=== PATIENT | male | born 1980 | race Caucasian/White ===

== ENCOUNTER 2017-02-13 11:38 | Emergency (ER) | payer MEDICARE, OTHER ==
[~2017-02-13] VITALS: Ht 165.1 cm; Wt 97.1 kg
[~2017-02-13 11:38] MED LIST: AMLO2.5T PO; AMOX500C PO; CYCL10TA2 PO; GABA-586 PO; HYDR-2762 PO; HYDR-971 PO; LISI1TAB3 PO; LISI1TAB7 PO; METH-38 PO
[2017-02-13 12:20] VITALS: BP 163/110
[2017-02-13] MEDS ORDERED: CYCL10TA2 PO (12:52)
--- NOTE | 2017-02-13 12:52 | PHYS DOC ---
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 Patient states that he had no loss of bowel or bladder however he does state he has a little numbness and tingling into his right leg. Patient is able to ambulate with a good steady gait. Patient states he has taken ibuprofen at home for the pain and discomfort as he can take ibuprofen pills been unable to take the ibuprofen liquid. Patient denies any loss of bowel or bladder. Review of Systems Review of Systems Constitutional: Denies fever or chills [] Eyes: Denies change in visual acuity, redness, or eye pain [] HENT: Denies nasal congestion or sore throat [] Respiratory: Denies cough or shortness of breath [] Cardiovascular: No additional information not addressed in HPI [] GI: Denies abdominal pain, nausea, vomiting, bloody stools or diarrhea [] : Denies dysuria or hematuria [] Musculoskeletal: Complaining of mid back pain denies any joint pain Integument: Denies rash or skin lesions [] Neurologic: Denies headache, focal weakness or sensory changes [] Endocrine: Denies polyuria or polydipsia [] Allergies Allergies Allergies Coded Allergies Type Severity Reaction Last Updated Verified ibuprofen Allergy Severe tachycardia shortness of breath 05/22/15 Yes amlodipine Adverse Reaction Intermediate Nausea and Vomiting 05/22/15 Yes morphine Adverse Reaction Intermediate Nausea and Vomiting palpitations Yes Physical Exam Physical Exam Constitutional: Well developed, well nourished, no acute distress, non-toxic appearance. [] HENT: Normocephalic, atraumatic, bilateral external ears normal, oropharynx moist, no oral exudates, nose normal. [] Eyes: PERRLA, EOMI, conjunctiva normal, no discharge. [] Neck: Normal range of motion, no tenderness, supple, no stridor. [] Cardiovascular:Heart rate regular rhythm, no murmur [] Lungs & Thorax: Bilateral breath sounds clear to auscultation [] Skin: Warm, dry, no erythema, no rash. [] Back: Tenderness noted to the paraspinal area along the mid thoracic to upper lumbar area. Extremities: No tenderness, no cyanosis, no clubbing, ROM intact, no edema. Peripheral pulses 2+ cap refill brisk less than 2 seconds. Patient with increased discomfort noted when doing straight leg raise on the right. Neurologic: Alert and oriented X 3, normal motor function, normal sensory function, no focal deficits noted. [] Psychologic: Affect normal, judgement normal, mood normal. [] Current Patient Data Vital Signs Vital Signs Date Time Temp Pulse Resp B/P (MAP) Pulse Ox O2 Delivery O2 Flow Rate FiO2 02/13/17 12:20 98.6 81 18 95 Room Air 98.6 EKG EKG [] Radiology/Procedures Radiology/Procedures [] Course & Med Decision Making Course & Med Decision Making Pertinent Labs and Imaging studies reviewed. (See chart for details) Patient was instructed to continue with ibuprofen 800 mg every 8 hours with food stop taking few develop an upset stomach. Patient was also encouraged to use Flexeril as needed for muscle spasms. Explained to patient that this medication will cause drowsiness do not take any be alert and oriented. Patient was provided with signs and symptoms to return back to the emergency department. Patient was also encouraged to use ice packs on 20 minutes off 20 minutes several times a day. He was encouraged follow-up with his work comp physician in one week if he continues to have pain and discomfort. He was also instructed to avoid heavy lifting over 5 pounds from the floor to the waist of the waist above the shoulders. Patient was also encouraged to refrain from working or driving while taking the Flexeril as this medication causes drowsiness. Patient agrees with discharge instructions treatment regimens and follow-up recommendations. Dragon Disclaimer Dragon Disclaimer This electronic medical record was generated, in whole or in part, using a voice recognition dictation system. Departure Departure Impression: Primary Impression: Back strain Disposition: 01 HOME, SELF-CARE Condition: STABLE Referrals: NO PCP (PCP) Patient Instructions: Back Pain, Adult, [id number] Additional Instructions: Activity as tolerated Medication as prescribed Ibuprofen 800 mg every 8 hours with food stop taking if you develop upset stomach Flexeril for muscle spasm, this medication will cause drowsiness do not take if you need to be alert and oriented Followup with work com physician if you continue to have pain in 1 week Return to emergency department as needed for signs and symptoms that become worse. Scripts Cyclobenzaprine Hcl (CYCLOBENZAPRINE HCL) 10 Mg Tablet 10 MG PO TID, #30 TAB Prov: BRUNO ROCHA APRN 02/13/17 BRUNO ROCHA APRN Feb 13, 2017 12:52
== END 2017-02-13 12:53 | disposition home or self-care (01) ==
LOC: ER 11:38
DX: S39.012A Strain of muscle, fascia and tendon of lower back, initial encounter (principal); I10 Essential (primary) hypertension; H91.90 Unspecified hearing loss, unspecified ear; Z88.6 Allergy status to analgesic agent; Z88.5 Allergy status to narcotic agent; Z88.8 Allergy status to other drugs, medicaments and biological substances; Z90.49 Acquired absence of other specified parts of digestive tract; Z96.22 Myringotomy tube(s) status; X58.XXXA Exposure to other specified factors, initial encounter; Y93.89 Activity, other specified; Y92.89 Other specified places as the place of occurrence of the external cause; Y99.8 Other external cause status
CPT/HCPCS: 99283

== ENCOUNTER 2021-03-09 10:00 | Emergency (ER) | payer SELFPAY ==
[~2021-03-09] VITALS: Ht 188 cm; Wt 105.2 kg
[~2021-03-09 10:00] MED LIST changes: -AMLO2.5T PO; +AMLO2.5T5 PO; -GABA-586 PO; +GABA300C18 PO; -HYDR-2762 PO; +HYDR-2765 PO; +HYDR-3164 PO; -HYDR-971 PO; +LISI1TAB20 PO; +LISI1TAB23 PO; -LISI1TAB3 PO; -LISI1TAB7 PO
[2021-03-09 10:28] LABS: BASO # 0.2 x10^3/uL (0.0-0.2); BASO % 1 % (0-3); EOS # 0.6 x10^3/uL (0.0-0.7); EOS % 3 % (0-3); HEMOGLOBIN 17.3 g/dL (13.0-17.5); LYMPH # 2.7 x10^3/uL (1.0-4.8); LYMPH % 15 % (24-48); MEAN CORPUSCULAR HEMOGLOBIN 31 pg (25-35); MEAN CORPUSCULAR HGB CONC 35 g/dL (31-37); MEAN CORPUSCULAR VOLUME 87 fL (79-100); MONO # 1.5 x10^3/uL (0.0-1.1); MONO % 8 % (0-9); NEUT # 13.5 x10^3/uL (1.8-7.7); NEUT % 73 % (31-73); PLATELET COUNT 297 x10^3/uL (140-400); RED BLOOD COUNT 5.63 x10^6/uL (4.30-5.70); RED CELL DISTRIBUTION WIDTH 13.8 % (11.5-14.5); WHITE BLOOD COUNT 18.5 x10^3/uL (4.0-11.0)
[2021-03-09 10:55] LABS: CALCIUM 9.5 mg/dL (8.5-10.1); GFR 81.9
[2021-03-09 10:58] LABS: BARBITURATES NEG (NEG); BENZODIAZEPINES NEG (NEG); CANNABINOIDS NEG (NEG); COCAINE NEG (NEG); METHADONE NEG (NEG); OPIATES NEG (NEG); PHENCYCLIDINE NEG (NEG)
[2021-03-09 10:59] LABS: ALBUMIN 3.8 g/dL (3.4-5.0); MAGNESIUM 2.3 mg/dL (1.8-2.4); TOTAL BILIRUBIN 0.4 mg/dL (0.2-1.0); TOTAL PROTEIN 7.7 g/dL (6.4-8.2)
[2021-03-09 11:01] LABS: AMPHETAMINE/METHAMPHETAMINE NEG (NEG); BILIRUBIN,URINE NEGATIVE (NEG); CLARITY,URINE CLEAR; COLOR,URINE YELLOW; NITRITE,URINE NEGATIVE (NEG); PROTEIN,URINE 30 mg/dL (NEG-TRACE)
[2021-03-09 11:02] LABS: BACTERIA,URINE 0 /HPF (0-FEW); WBC,URINE 0 /HPF (0-4)
--- NOTE | 2021-03-09 11:08 | RAD ---
EXAM: Head CT without contrast. HISTORY: Altered mental status. TECHNIQUE: Computed tomographic images of the head were obtained without contrast. *One or more of the following individualized dose reduction techniques were utilized for this examina tion: 1. Automated exposure control. 2. Adjustment of the mA and/or kV according to patient size. 3. Use of iterative reconstruction technique. COMPARISON: None. FINDINGS: There is no acute or subacute extra-axial or intraparenchymal hemorrhage. There is no mass effect or midline shift. There is no hydrocephalus. There are nonspecific areas of decreased attenuation within the cerebral white matter. There is artif act related to a cochlear implant generator overlying the left mastoid. The orbits and visualized par anasal sinuses are clear. No suspicious calvarial lesion is seen. IMPRESSION: 1. No acute intracranial finding. Note is made that MRI is more sensitive for acute infarction. 2. Nonspecific areas of hypodensity within the cerebral white matter. Given the patient age, the dif ferential includes changes due to demyelinating disease. The possibility of changes due to chronic sm all vessel disease and advanced for patient age is also considered. These findings can be better asse ssed with MRI if clinically indicated. Electronically signed by: Alicia More MD (03/09/2021 11:06 AM) [id number]
[2021-03-09] MEDS ORDERED: POTASSIUM CHLORIDE 20MEQ 100 ML IV ONE (11:30)
[2021-03-09] MEDS ORDERED: ONDANSETRON PF 4 MG/2 ML VIAL. IVP ONE (11:45)
--- NOTE | 2021-03-09 11:58 | PHYS DOC ---
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 He woke up this morning at 745am, trying to get his attention because he could not move his left side. He felt like he being drunk but he has not drank any alcohol. He has have some visual disturbance and left eye twisting for 3 weeks. Patient was seen by his doctor on 03/06/21, and was told that being related to his migraine headache symptoms. Patient had no history of stroke, he is not on any blood thinner. History is very difficult to obtain because of patient condition. His daughter said took them more than an hour to get him dressed up, out of the house to come here. Upon arrival to ER, patient was acting very confused and somnolent. He was noted to move right side side but did not move his left side. He was observed tracking with his eyes. Review of Systems: Review of Systems: Constitutional: Denies fever or chills. [] Eyes: Positive for left eye problem HENT: Denies nasal congestion or sore throat. [] Respiratory: Denies cough or shortness of breath. [] Cardiovascular: Denies chest pain or edema. [] GI: Denies abdominal pain, nausea, vomiting, bloody stools or diarrhea. [] : Denies dysuria. [] Musculoskeletal: Denies back pain or joint pain. [] Integument: Denies rash. [] Neurologic: Positive for left-sided weakness, confusion, Endocrine: Denies polyuria or polydipsia. [] Lymphatic: Denies swollen glands. [] Psychiatric: Denies depression or anxiety. [] Heart Score: C/O Chest Pain: N/A Risk Factors: Risk Factors: DM, Current or recent (<one month) smoker, HTN, HLP, family history of CAD, obesity. Risk Scores: Score 0 - 3: 2.5% MACE over next 6 weeks - Discharge Home Score 4 - 6: 20.3% MACE over next 6 weeks - Admit for Clinical Observation Score 7 - 10: 72.7% MACE over next 6 weeks - Early Invasive Strategies Current Medications: Current Medications Medications (Trade) Dose Ordered Sig/Joshua Start Time Stop Time Status Last Admin Dose Admin Ondansetron HCl (Zofran) 4 mg 1X ONCE 03/09/21 11:45 03/09/21 11:46 DC 03/09/21 11:37 4 MG Potassium Chloride/Water 100 ml @ 50 mls/hr 1X ONCE 03/09/21 11:30 03/09/21 13:29 Allergies: Allergies: Allergies Coded Allergies Type Severity Reaction Last Updated Verified ibuprofen Allergy Severe tachycardia shortness of breath 05/22/15 Yes amlodipine Adverse Reaction Intermediate Nausea and Vomiting 05/22/15 Yes morphine Adverse Reaction Intermediate Nausea and Vomiting palpitations 05/22/15 Yes Physical Exam: PE: Constitutional: Well developed, well nourished, no acute distress, non-toxic appearance. [] HENT: Normocephalic, atraumatic, bilateral external ears normal, oropharynx moist, no oral exudates, nose normal. [] Eyes: PERRLA, not able to look up on left eye, conjunctiva normal, no discharge. [] Neck: Normal range of motion, no tenderness, supple, no stridor. [] Cardiovascular:Heart rate regular rhythm, no murmur [] Lungs & Thorax: Bilateral breath sounds clear to auscultation [] Abdomen: Bowel sounds normal, soft, no tenderness, no masses, no pulsatile masses. [] Skin: Warm, dry, no erythema, no rash. [] Back: No tenderness, no CVA tenderness. [] Extremities: No tenderness, no cyanosis, no clubbing, ROM intact, no edema. [] Neurologic: no movement on left upper and left lower extremities, altered sensation, slurred speech, drooling on left side, patient can move right leg but weak, left eye will not look up, right side facial droop. Psychologic: Affect normal, judgement normal, mood normal. [] Current Patient Data: Labs: Laboratory Tests Test 03/09/21 10:10 03/09/21 10:25 White Blood Count 18.5 x10^3/uL (4.0-11.0) H Red Blood Count 5.63 x10^6/uL (4.30-5.70) Hemoglobin 17.3 g/dL (13.0-17.5) Hematocrit 49.0 % (39.0-53.0) Mean Corpuscular Volume 87 fL (79-100) Mean Corpuscular Hemoglobin 31 pg (25-35) Mean Corpuscular Hemoglobin Concent 35 g/dL (31-37) Red Cell Distribution Width 13.8 % (11.5-14.5) Platelet Count 297 x10^3/uL (140-400) Neutrophils (%) (Auto) 73 % (31-73) Lymphocytes (%) (Auto) 15 % (24-48) L Monocytes (%) (Auto) 8 % (0-9) Eosinophils (%) (Auto) 3 % (0-3) Basophils (%) (Auto) 1 % (0-3) Neutrophils # (Auto) 13.5 x10^3/uL (1.8-7.7) H Lymphocytes # (Auto) 2.7 x10^3/uL (1.0-4.8) Monocytes # (Auto) 1.5 x10^3/uL (0.0-1.1) H Eosinophils # (Auto) 0.6 x10^3/uL (0.0-0.7) Basophils # (Auto) 0.2 x10^3/uL (0.0-0.2) Platelet Estimate Pending Sodium Level 137 mmol/L (136-145) Potassium Level 3.0 mmol/L (3.5-5.1) L Chloride Level 101 mmol/L (98-107) Carbon Dioxide Level 26 mmol/L (21-32) Anion Gap 10 (6-14) Blood Urea Nitrogen 13 mg/dL (8-26) Creatinine 1.0 mg/dL (0.7-1.3) Estimated GFR (Cockcroft-Gault) 81.9 BUN/Creatinine Ratio 13 (6-20) Glucose Level 136 mg/dL (70-99) H Glucose (Fingerstick) 150 mg/dL (70-99) H Calcium Level 9.5 mg/dL (8.5-10.1) Magnesium Level 2.3 mg/dL (1.8-2.4) Total Bilirubin 0.4 mg/dL (0.2-1.0) Aspartate Amino Transferase (AST) 17 U/L (15-37) Alanine Aminotransferase (ALT) 35 U/L (16-63) Alkaline Phosphatase 96 U/L (46-116) Troponin I Quantitative < 0.017 ng/mL (0.000-0.055) XN-Ips-W-Type Natriuretic Peptide 43 pg/mL (0-124) Total Protein 7.7 g/dL (6.4-8.2) Albumin 3.8 g/dL (3.4-5.0) Albumin/Globulin Ratio 1.0 (1.0-1.7) Ethyl Alcohol Level < 10 mg/dL (0-10) Urine Collection Type U cath Urine Color Yellow Urine Clarity Clear Urine pH 7.0 (<5.0-8.0) Urine Specific Stopover 1.025 (1.000-1.030) Urine Protein 30 mg/dL (NEG-TRACE) Urine Glucose (UA) Negative mg/dL (NEG) Urine Ketones (Stick) Negative mg/dL (NEG) Urine Blood Moderate (NEG) Urine Nitrite Negative (NEG) Urine Bilirubin Negative (NEG) Urine Urobilinogen Dipstick 1.0 mg/dL (0.2 mg/dL) Urine Leukocyte Esterase Negative (NEG) Urine RBC 6-10 /HPF (0-2) Urine WBC 0 /HPF (0-4) Urine Squamous Epithelial Cells Occ /LPF Urine Bacteria 0 /HPF (0-FEW) Urine Opiates Screen Neg (NEG) Urine Methadone Screen Neg (NEG) Urine Barbiturates Neg (NEG) Urine Phencyclidine Screen Neg (NEG) Urine Amphetamine/Methamphetamine Neg (NEG) Urine Benzodiazepines Screen Neg (NEG) Urine Cocaine Screen Neg (NEG) Urine Cannabinoids Screen Neg (NEG) Urine Ethyl Alcohol Neg (NEG) Laboratory Tests 03/09/21 10:10 Laboratory Tests 03/09/21 10:10 Vital Signs: Vital Signs Date Time Temp Pulse Resp B/P (MAP) Pulse Ox O2 Delivery O2 Flow Rate FiO2 03/09/21 10:23 98.0 95 16 145/89 (127) 100 Nasal Cannula 4.0 98.0 EKG: EKG: EKG was done at 1010, heart rate of 90 bpm, normal sinus rhythm, no ST segment elevation. Radiology/Procedures: Radiology/Procedures: [facility] [address] [place] [address] IMAGING REPORT Signed PATIENT: ILA MARVIN ACCOUNT: [id number] : 1980 LOCATION: ER AGE: 41 SEX: M EXAM STATUS: REG ER ORD. PHYSICIAN: LOS BAE DO REASON: left side weakness, not able to walk PROCEDURE: CT ANGIOGRAPHY HEAD AND NECK EXAM: CT angiography of the head and neck with intravenous contrast. HISTORY: Left-sided weakness. TECHNIQUE: Computed tomographic images of the head and neck were obtained following the administration of intravenous contrast according to angiography protocol. Multiplanar reformatting was performed and three dimensional maximum intensity projection images were obtained. *One or more of the following individualized dose reduction techniques were u tilized for this examination: 1. Automated exposure control. 2. Adjustment of the mA and/or kV according to patient size. 3. Use of iterative reconstruction technique. COMPARISON: Noncontrast head CT performed 03/09/2021. FINDINGS: There is a common origin of the right innominate and left common carotid arteries, a normal aortic arch branching variant. The visualized aortic arch is normal in caliber. No dissection is seen. There is a tortuous proximal left common carotid artery. There is no evidence of hemodynamically significant stenosis involving the proximal arch great vessels. There is mild intimal thickening involving the common carotid arteries and carotid bifurcations. There is no hemodynamically significant stenosis involving the carotid bifurcations. The distal internal carotid arteries are widely patent. The anterior indicating artery is faintly seen. There is a suspected left posterior cerebral artery or prominent posterior communicating artery with hypoplastic P1 segment. The right posterior communicating artery is likely developmental or absent. The right vertebral artery slightly dominant. The distal left vertebral artery is hypoplastic and is occluded distal to the origin of the posterior inferior cerebellar artery. 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 There is ground glass opacity within the lung apices likely due to atelectasis. There is no pneumothorax. There is no neck lymphadenopathy. The airways midline and widely patent. There is no mass effect or midline shift. There is no hydrocephalus. There is incidental asymmetry in the size of the right greater than left dural venous transverse sinuses, a normal variant. No convincing sinus thrombosis is seen. There are few incidental arachnoid granulations. IMPRESSION: 1. 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 2. Subtle areas of hypodensity within the cerebral white matter, better characterized on a noncontrast exam performed on the same date. This is nonspecific in a patient of this age. This can be better assessed with MRI. MRI is also more sensitive for acute infarction. Critical findings were discussed with Dr. Bae at 1245 hours on 03/09/2021. FOR INTERNAL CODING PURPOSES RESULT CODE: (C) PQRS Compliance Statement - Stenosis calculations for CT, MR and conventional angiography are based upon measurement of the distal ICA diameter in accordance with the NASCET methodology. Stenosis calculations for carotid ultrasound studies are derived from validated velocity criteria which are known to correlate with the NASCET methodology. Electronically signed by: Alicia Rascon MD (03/09/2021 12:47 PM) [id number] DICTATED and SIGNED BY: ALICIA RASCON MD DATE: 03/09/21 [id number] 0 Course & Med Decision Making: Course & Med Decision Making Pertinent Labs and Imaging studies reviewed. (See chart for details) Patient is a 41-year-old male who presented to ER due to left-sided weakness, left eye problem. History was conflicted initially, but finally it was confirmed that last time he was normal was at 10 PM, he normally functional, able to walk able to write, without any problem. He has some problem with left eye and visual problem for [address] head did not show any acute problem. CTA of his head and neck showed some large vessels occlusion, discussed with the interventional neurologist at Dr. Lim who recommended to transfer the patient to [facility] for definitive interventional treatment.. Patient is not a candidate for TPA because last time normal was at 10 PM yesterday however he is within window for clot retrieval procedure. Dragon Disclaimer: Dragon Disclaimer: This electronic medical record was generated, in whole or in part, using a voice recognition dictation system. Departure Departure Impression: Primary Impression: Acute cerebrovascular accident (CVA) Disposition: 02 SHORT TERM HOSPITAL (Transfered to [facility], ACCEPTED BY DR. CRYSTAL RESENDEZ.) Condition: STABLE Referrals: MARLENE MARVIN MD (PCP) LOS BAE DO Mar 09, 2021 11:58
[2021-03-09] MEDS ORDERED: CONTRAST GIVEN. MC PRN (12:00)
[2021-03-09] MEDS ORDERED: IOHEXOL 350 MG/ML 100 ML VIAL. IV ONE (12:00)
--- NOTE | 2021-03-09 12:04 | RAD ---
EXAM: Chest, single view. HISTORY: Cough. COMPARISON: None. FINDINGS: A frontal view of the chest is obtained. There is mild diffuse increased interstitial opaci ty. There is no consolidation, pleural effusion or pneumothorax. There is a prominent cardiac silhoue tte, likely accentuated due to portable technique. IMPRESSION: Mild diffuse interstitial prominence. There is no consolidated infiltrate. Electronically signed by: Alicia More MD (03/09/2021 12:01 PM) [id number]
[2021-03-09 12:27] VITALS: BP 149/90
--- NOTE | 2021-03-09 12:49 | RAD ---
EXAM: CT angiography of the head and neck with intravenous contrast. HISTORY: Left-sided weakness. TECHNIQUE: Computed tomographic images of the head and neck were obtained following the administratio n of intravenous contrast according to angiography protocol. Multiplanar reformatting was performed a nd three dimensional maximum intensity projection images were obtained. *One or more of the following individualized dose reduction techniques were utilized for this examina tion: 1. Automated exposure control. 2. Adjustment of the mA and/or kV according to patient size. 3. Use of iterative reconstruction technique. COMPARISON: Noncontrast head CT performed 03/09/2021. FINDINGS: There is a common origin of the right innominate and left common carotid arteries, a normal aortic arch branching variant. The visualized aortic arch is normal in caliber. No dissection is see n. There is a tortuous proximal left common carotid artery. There is no evidence of hemodynamically s ignificant stenosis involving the proximal arch great vessels. There is mild intimal thickening involving the common carotid arteries and carotid bifurcations. Ther e is no hemodynamically significant stenosis involving the carotid bifurcations. The distal internal carotid arteries are widely patent. The anterior indicating artery is faintly seen. There is a suspec hoang left posterior cerebral artery or prominent posterior communicating artery with hypoplastic P1 segment. The right posterior communicating artery is likely developmental or absent. The right vertebral artery slightly dominant. The distal left vertebral artery is hypoplastic and is occluded distal to the origin of the posterior inferior cerebellar artery. There is suspected complet e to near complete occlusion of the distal right vertebral artery and near complete occlusion of the basilar artery. There is ground glass opacity within the lung apices likely due to atelectasis. There is no pneumotho rax. There is no neck lymphadenopathy. The airways midline and widely patent. There is no mass effect or midline shift. There is no hydrocephalus. There is incidental asymmetry in the size of the right greater than left dural venous transverse sinuses, a normal variant. No convincing sinus thrombosis i s seen. There are few incidental arachnoid granulations. IMPRESSION: 1. 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 2. Subtle areas of hypodensity within the cerebral white matter, better characterized on a noncontras t exam performed on the same date. This is nonspecific in a patient of this age. This can be better a ssessed with MRI. MRI is also more sensitive for acute infarction. Critical findings were discussed with Dr. Maddox at 1245 hours on 03/09/2021. FOR INTERNAL CODING PURPOSES RESULT CODE: (C) PQRS Compliance Statement - Stenosis calculations for CT, MR and conventional angiography are based u sammi measurement of the distal ICA diameter in accordance with the NASCET methodology. Stenosis calcu lations for carotid ultrasound studies are derived from validated velocity criteria which are known t o correlate with the NASCET methodology. Electronically signed by: Alicia More MD (03/09/2021 12:47 PM) [id number]
[2021-03-09 13:18] LABS: % BANDS 2 % (0-9); % EOS 2 % (0-5); % LYMPHS 14 % (24-48); % MONOS 7 % (0-10); % SEGS 75 % (35-66); PLT ESTIMATE ADEQUATE (ADEQUATE)
--- NOTE | 2021-03-09 14:00 | EKG ---
[facility] [address] [place] [address] Test Date: 2021-03-09 Test Time: 10:10:24 Pat Name: ILA MARVIN Department: Room: Gender: M Industrial Maintenance Mechanic: : 1980 Requested By: LOS BAE Order Number: [id number] Reading MD: Measurements Intervals [place] Rate: 90 P: 29 PA: 148 QRS: 39 QRSD: 94 T: 24 QT: 352 QTc: 435 Interpretive Statements SINUS RHYTHM NORMAL ECG RI6.02 No previous ECG available for comparison
== END 2021-03-09 13:15 | disposition short-term general hospital (02) ==
LOC: ER 10:00
DX: I63.9 Cerebral infarction, unspecified (principal); I10 Essential (primary) hypertension; F17.200 Nicotine dependence, unspecified, uncomplicated; G43.909 Migraine, unspecified, not intractable, without status migrainosus; Z88.1 Allergy status to other antibiotic agents; Z88.5 Allergy status to narcotic agent; Z88.8 Allergy status to other drugs, medicaments and biological substances
CPT/HCPCS: 36415; 70450; 70496; 70498; 71045; 80053; 80307; 81001; 82962; 83735; 83880; 84484; 85007; 85025; 93005; 96365; 96375; 99285; G0480; J2405; J3480; Q9967